=== PATIENT | male | born 1940 | race Caucasian/White ===

== ENCOUNTER → 2016-10-31 | Outpatient (CLI) | payer MEDICARE | END | disposition home or self-care (01) | LOC: PCVCCLINIC 10:17 | PROVIDERS: ATTEND Internal Medicine Cardiovascular Disease | DX: E78.00 Pure hypercholesterolemia, unspecified (principal); I25.10 Atherosclerotic heart disease of native coronary artery without angina pectoris; I77.9 Disorder of arteries and arterioles, unspecified; I10 Essential (primary) hypertension; R07.9 Chest pain, unspecified; I44.7 Left bundle-branch block, unspecified | CPT/HCPCS: 80061; 93005; G0463 ==

== ENCOUNTER → 2017-11-25 | Outpatient (CLI) | payer MEDICARE | END | disposition home or self-care (01) | LOC: PCVCCLINIC 11:41 | DX: I25.10 Atherosclerotic heart disease of native coronary artery without angina pectoris (principal); I10 Essential (primary) hypertension; I65.29 Occlusion and stenosis of unspecified carotid artery; I44.7 Left bundle-branch block, unspecified; E78.00 Pure hypercholesterolemia, unspecified; E11.9 Type 2 diabetes mellitus without complications; R94.31 Abnormal electrocardiogram [ECG] [EKG]; Z79.4 Long term (current) use of insulin; Z87.891 Personal history of nicotine dependence; Z79.899 Other long term (current) drug therapy; Z79.82 Long term (current) use of aspirin | CPT/HCPCS: 93005; G0463 ==

== ENCOUNTER → 2018-09-18 | Outpatient (CLI) | payer MEDICARE | END | disposition home or self-care (01) | LOC: PCVCCLINIC 13:53 | PROVIDERS: ATTEND Internal Medicine Cardiovascular Disease | DX: I25.10 Atherosclerotic heart disease of native coronary artery without angina pectoris (principal); E11.9 Type 2 diabetes mellitus without complications; I65.23 Occlusion and stenosis of bilateral carotid arteries; I10 Essential (primary) hypertension; I44.7 Left bundle-branch block, unspecified; E78.00 Pure hypercholesterolemia, unspecified; R07.9 Chest pain, unspecified; R06.02 Shortness of breath; Z87.891 Personal history of nicotine dependence | CPT/HCPCS: 93005; G0463 ==

== ENCOUNTER → 2018-10-02 | Outpatient (CLI) | payer MEDICARE ==
[~2018-10-02] MED LIST: REGADENOSON 0.4 MG/5 ML DISP.SYRIN. IV ONE
--- NOTE | 2018-10-03 10:51 | PCVCIMAG ---
APPROVED REPORT Study performed: 10/02/2018 07:54:58 EXAM: Comprehensive 2D, Doppler, and color-flow Echocardiogram Patient Location: Echo lab Status: routine BSA: 1.95 HR: 68 bpmBP: 140/78 mmHg Rhythm: LBBB Other Information Study Quality: Good Risk Factors: Cardiac Risk Factors: DM Indications Dyspnea CAD Hypertension/HDD Stent, LBBB 2D Dimensions IVSd: 14.57 (7-11mm)LVOT Diam: 19.19 (18-24mm) LVDd: 36.52 mm PWd: 11.49 (7-11mm)Ascending Ao: 36.50 (22-36mm) LVDs: 24.30 (25-40mm) Left Atrium: 45.82 (27-40mm) Aortic Root: 30.62 mm LV Single Plane 4CH: 62.28 % LV Single Plane 2CH: 55.68 % Biplane EF: 60.5 % Volumes Left Atrial Volume (Systole) Single Plane 4CH: 58.00 mLSingle Plane 2CH: 52.78 mL LA ESV Index: 29.00 mL/m2 Aortic Valve AoV Peak Nikhil.: 1.23 m/s AO Peak Gr.: 6.05 mmHgLVOT Max P.05 mmHg LVOT Max V: 1.12 m/s DOT Vmax: 2.64 cm2 Mitral Valve E/A Ratio: 0.8 MV Decel. Time: 248.01 ms MV E Max Nikhil.: 0.68 m/s MV A Nikhil.: 0.82 m/s IVRT: 148.79 ms TDI E/Lateral E': 13.60E/Medial E': 7.56 Medial E' Nikhil.: 0.09 m/s Lateral E' Nikhil.: 0.05 m/s Pulmonary Valve PV Peak Gr.: 3.06 mmHg Tricuspid Valve TR Peak Nikhil.: 2.58 m/s TR Peak Gr.: 26.59 mmHg Left Ventricle The left ventricle is normal size. There is normal LV segmental wall motion. Mild concentric left ventricular hypertrophy. Left ventricular systolic function is normal. Discordant septal motion consistent with LBBB LVEF is 60-65%. Mild diastolic dysfunction is present (impaired relaxation pattern). Right Ventricle The right ventricle is normal size. The right ventricular systolic function is normal. Atria The left atrium size is normal. The right atrium size is normal. Aortic Valve The aortic valve is normal in structure. No aortic regurgitation is present. There is no aortic valvular stenosis. Mitral Valve The mitral valve is normal in structure. Mild mitral regurgitation. No evidence of mitral valve stenosis. Tricuspid Valve The tricuspid valve is normal in structure. Mild tricuspid regurgitation. Pulmonary artery pressure is 34mmHg. Pulmonic Valve The pulmonary valve is normal in structure. There is no pulmonic valvular regurgitation. Great Vessels The aortic root is normal in size. IVC is normal in size and collapses >50% with inspiration. Pericardium There is no pericardial effusion. <Conclusion> Left ventricular systolic function is normal. Discordant septal motion consistent with LBBB There is normal LV segmental wall motion. LVEF is 60-65%. Mild diastolic dysfunction The aortic valve is normal in structure. No aortic regurgitation or stenosis. The mitral valve is normal in structure. Mild mitral regurgitation. Mild tricuspid regurgitation. Pulmonary artery pressure of 34mmHg. There is no pericardial effusion.
--- NOTE | 2018-10-03 11:17 | PCVCIMAG ---
APPROVED REPORT Imaging Protocol: Rest Tc-99m/Stress Tc-99m 1 day Study performed: 10/02/2018 08:43:47 Indication: Chest pain, Dyspnea, LBBB Patient Location: Out-Patient Stress Nurse: Opal Antoine RN, Gayle Escobedo RN [place] Tech:JIHAN EchavarriaMT Ht: 5 ft 8 in Wt: 182 lbs BSA: 1.96 m2 HR: 58 bpm BP: 198/73 mmHg BMI: 27.6 Rhythm: Sinus Rhythm, 1st degree AV block, LBBB Medical History Medical History: HTN, Hyperlipidemia, CAD, CVD, Diabetic Insulin, Former Smoker Medications: Amlodipine, ASA, Cardura, Glipizide, Synthroid, Losartan, Prilosec, Zantac, Simvastatin, Demedex Allergies: No known drug allergies Cardiac Risk Factors: Age Previous Cardiac Procedures: PCI - Remote LAD/RCA Pretest Chest Pain Characteristics: No chest pain Exercise History: Sedentary Resting Data Rest SPECT myocardial perfusion imaging was performed in supine position 45 minutes following the intravenous injection of 10.7 mCi of Tc-99m Sestamibi. Time of rest injection: 0845 Date: 10/02/2018 Administration Route: IV Administration Site: Right Arm Pharmacologic Stress Pharmacologic stress test was performed by injecting Regadenoson 0.4 mg IV push over 10-15 seconds immediately followed by the intravenous injection of 35 mCi of Tc-99m Sestamibi. Time of stress injection: 1015 Date: 10/02/2018 Administration Route: IV Administration Site: Right Arm Gated Stress SPECT was performed 45 minutes after stress injection. The images were gated to evaluate regional wall motion and calculate left ventricular ejection fraction. Stress Test Details Stress Test: Pharmacologic stress testing performed using 0.4 mg of regadenoson per 5 mL given IV over 10 seconds. Reason for pharmacologic stress test: respiratory issues. HRMax Heart Rate (APMHR): 141 bpm Resting HR: 58 bpmTarget HR (85% APMHR): 119 bpm Max HR Achieved: 80 bpm % of APMHR: 56 Recovery HR: 84 bpm BP Resting BP: 198/73 mmHg Max BP: 179/80 mmHg Recovery BP: 168/65 mmHg ECG Resting ECG: Sinus Bradycardia, 1st degree AV block, LBBB Stress ECG: Sinus Rhythm, 1st degree AV block, LBBB ST Change: Nondiagnostic V-pacing or LBBB Arrhythmia: VPC's Recovery ECG: Sinus Rhythm, 1st degree AV block, LBBB Recovery ST Change: Nondiagnostic V-pacing or LBBB Recovery Arrhythmia: None Clinical Reason for Termination: Completed protocol Stress Symptoms: Dyspnea Exercise duration: 0 min 55 sec Symptoms resolved with caffeine. Stress ECG Conclusion Clinical: Non-ischemic ECG: Nondiagnostic V-pacing or LBBB Study Quality Study: Good Study Data Post stress, the left ventricular ejection was 71%.. SSS: 6 SRS: 6 SDS: 1 TID = 1.00. Perfusion No evidence of stress induced ischemia or prior myocardial infarction. Wall Motion Normal left ventricular size and function with no regional wall motion abnormalities. Nuclear Conclusion No evidence of stress induced ischemia or prior myocardial infarction. Normal left ventricular size and function with no regional wall motion abnormalities. Post stress, the left ventricular ejection was 71%. No change since prior study dated June 2016. Interpreted by: Jimbo Velázquez MD Electronically Approved: 10/02/2018 14:55:22 <Conclusion> Clinical: Non-ischemic ECG: Nondiagnostic V-pacing or LBBB
== END | disposition home or self-care (01) ==
LOC: PCVCIMAG 07:44
PROVIDERS: ATTEND Internal Medicine Cardiovascular Disease
DX: I08.1 Rheumatic disorders of both mitral and tricuspid valves (principal); I25.10 Atherosclerotic heart disease of native coronary artery without angina pectoris; R06.09 Other forms of dyspnea; I10 Essential (primary) hypertension; I44.7 Left bundle-branch block, unspecified; E11.9 Type 2 diabetes mellitus without complications; Z79.4 Long term (current) use of insulin
CPT/HCPCS: 78452; 93017; 93306; A9500; J2785